=== PATIENT | male | born 1955 | race Caucasian/White ===

== ENCOUNTER 2025-02-19 09:54 | Outpatient (CLI) | payer BC, SELFPAY | END 2025-02-19 09:55 | disposition home or self-care (01) | PROVIDERS: Visit Provider Family Medicine | DX: E78.5 Hyperlipidemia, unspecified (principal); I10 Essential (primary) hypertension; Z11.59 Encounter for screening for other viral diseases; Z12.5 Encounter for screening for malignant neoplasm of prostate | CPT/HCPCS: 80053; 80061; 82043; 82570; 86803; G0103 ==

== ENCOUNTER 2025-03-03 06:44 | Outpatient (CLI) | payer BC, SELFPAY ==
--- NOTE | 2025-03-03 07:15 | CRLHL7_ITS ---
For Patients: As a result of the Century Cures Act, medical imaging exams and procedure reports are released immediately into your electronic medical record. You may view this report before your referring provider. If you have questions, please contact your health care provider. Examination: US abdominal aorta Indication: hx of nicotine dependency. Abdominal aortic aneurysm screening. Technique: Alexander scale and color Doppler images of the aorta and common iliac arteries are obtained. Comparison: None Findings: Proximal aorta: 2.9 x 2.9 cm Mid aorta: 2.1 x 2.5 cm Distal aorta: 2.2 x 2.3 cm Right common iliac artery: 1.4 x 1.2 cm Left common iliac artery: 1.2 x 1.4 cm Recommended imaging interval for ectatic aorta: 2.5-2.9 cm: 5 years Impression: No abdominal aortic aneurysm. Dictated by Damon Gilman MD @ 03/03/2025 10:01:27 PM (Electronically Signed)
== END 2025-03-03 06:45 | disposition home or self-care (01) ==
LOC: US 06:44
PROVIDERS: Visit Provider Family Medicine
DX: Z13.6 Encounter for screening for cardiovascular disorders (principal); Z87.891 Personal history of nicotine dependence
CPT/HCPCS: 76706

== ENCOUNTER 2025-05-20 08:41 | Outpatient (CLI) | payer BC, SELFPAY ==
--- NOTE | 2025-05-20 09:00 | CRLHL7_ITS ---
For Patients: As a result of the Century Cures Act, medical imaging exams and procedure reports are released immediately into your electronic medical record. You may view this report before your referring provider. If you have questions, please contact your health care provider. INDICATION: Lung cancer screening. TECHNIQUE: Low-dose lung cancer screening non-contrast CT chest. Dose reduction techniques were used. COMPARISON: None. FINDINGS: NODULES: 4 millimeter left upper lobe nodule Nodule. 5 millimeter right lower lobe . LUNGS AND PLEURA: Left pleural calcifications MEDIASTINUM: Median sternotomy. CORONARY ARTERY CALCIFICATION: Present. LIMITED UPPER ABDOMEN: Normal. MUSCULOSKELETAL: Degenerative change. IMPRESSION: 1. A few 5 millimeter pulmonary nodules. LUNG-RADS CATEGORY: 2: Benign. RADIOLOGIST RECOMMENDATION: Continue annual screening, if eligible, with low-dose CT chest in 12 months. Please note that all CT scans at this facility use dose modulation, iterative reconstruction, and/or weight-based dosing when appropriate to reduce radiation dose to as low as reasonably achievable. Dictated by Miriam Benedict MD @ 05/22/2025 8:51:01 AM (Electronically Signed)
[2025-05-20] MEDS: PERFLUTREN LIPID MICROSPHERES 2 ML VIAL IVP (11:03)
== END 2025-05-20 08:42 | disposition home or self-care (01) ==
LOC: CT 08:42
PROVIDERS: PCP Family Medicine; Visit Provider Family Medicine
DX: Z12.2 Encounter for screening for malignant neoplasm of respiratory organs (principal); R91.8 Other nonspecific abnormal finding of lung field; F17.200 Nicotine dependence, unspecified, uncomplicated; I73.9 Peripheral vascular disease, unspecified; I34.0 Nonrheumatic mitral (valve) insufficiency; I25.10 Atherosclerotic heart disease of native coronary artery without angina pectoris
CPT/HCPCS: 71271; 93306

== ENCOUNTER 2025-07-16 08:56 | Outpatient (CLI) | payer BC, SELFPAY ==
--- NOTE | 2025-07-16 10:27 | P.ANES_ITS ---
Anesthesia Charges Start Date/Time Anesthesia Start Date: 07/16/25 Anesthesia Start Time: 09:55 Stop Date/Time Anesthesia Stop Date: 07/16/25 Anesthesia Stop Time: 10:24 Summary Extremes of Age - Over 70 or under 1: GILL BOX OPERATOR Coding CPT Codes CPT Codes: ANES LWR INTST NDSC NOS - 89707 ([id number]) P3 - PATIENT W/SEVERE SYS DISEASE, QZ - GILL BOX OPERATOR SVC W/O RUBBER CUTTER AND SHAPE CARVER BY Additional Codes: Summary - Extremes of Age - Over 70 or under 1: GILL BOX OPERATOR ([id number])
--- NOTE | 2025-07-16 10:27 | W.ANESCHARGE ---
Anesthesia Charges Start Date/Time Anesthesia Start Date: 07/16/25 Anesthesia Start Time: 09:55 Stop Date/Time Anesthesia Stop Date: 07/16/25 Anesthesia Stop Time: 10:24 Summary Extremes of Age - Over 70 or under 1: BAKER CHEF Coding CPT Codes CPT Codes: ANES LWR INTST NDSC NOS - 97247 ([id number]) P3 - PATIENT W/SEVERE SYS DISEASE, QZ - BAKER CHEF SVC W/O LICENSED NUCLEAR OPERATOR BY Additional Codes: Summary - Extremes of Age - Over 70 or under 1: BAKER CHEF ([id number])
== END 2025-07-16 08:57 | disposition home or self-care (01) ==
LOC: OP CLINIC 08:57
PROVIDERS: PCP Family Medicine; Visit Provider Internal Medicine
DX: Z12.11 Encounter for screening for malignant neoplasm of colon (principal); Z86.0100 Personal history of colon polyps, unspecified; D12.5 Benign neoplasm of sigmoid colon; D12.4 Benign neoplasm of descending colon; D12.3 Benign neoplasm of transverse colon
CPT/HCPCS: 00811; 45385; 88305; 99100; J2704